=== PATIENT | female | born 1980 | race Caucasian/White ===

== ENCOUNTER 2022-06-02 07:38 | Outpatient (CLI) | payer BC, SELFPAY ==
--- NOTE | 2022-06-02 07:45 | CRLHL7_ITS ---
For Patients: As a result of the Century Cures Act, medical imaging exams and procedure reports are released immediately into your electronic medical record. You may view this report before your referring provider. If you have questions, please contact your health care provider. BILATERAL SCREENING MAMMOGRAM WITH COMPUTER-AIDED DETECTION AND TOMOSYNTHESIS TECHNIQUE: CC and MLO views were obtained. These mammographic images have been obtained using full-field digital technique. These mammographic images were interpreted with the benefit of computer-aided detection. Breast Tomosynthesis was used in this interpretation. COMPARISON FILM: , 05/29/20. FINDINGS: There are scattered areas of fibroglandular density IMPRESSION: There is no radiographic evidence for malignancy. ASSESSMENT: BI-RADS Category 1: Negative RECOMMENDATION: Routine screening mammogram in 1 year. A lay language report of this examination will be provided to the patient. Maxime Issa M.D. Diagnostic Radiologist [email or web address] RENU/Dictated by: Maxime Issa MD @ 06/02/2022 9:58:00 AM (Electronically Signed)
== END 2022-06-02 07:39 | disposition home or self-care (01) ==
LOC: MAMMO 07:39
PROVIDERS: Visit Provider Registered Nurse
DX: Z12.31 Encounter for screening mammogram for malignant neoplasm of breast (principal)
CPT/HCPCS: 77063; 77067

== ENCOUNTER 2023-07-23 11:13 | Outpatient (CLI) | payer BC, SELFPAY | END 2023-07-23 11:14 | disposition home or self-care (01) | PROVIDERS: PCP Emergency Medicine; Visit Provider Registered Nurse | DX: R53.83 Other fatigue (principal); R63.5 Abnormal weight gain; Z13.220 Encounter for screening for lipoid disorders | CPT/HCPCS: 80061; 82306; 84443 ==

== ENCOUNTER 2023-08-05 08:33 | Outpatient (CLI) | payer BC, SELFPAY | END 2023-08-05 08:34 | disposition home or self-care (01) | LOC: NFLDREF 08-07 12:01 | PROVIDERS: PCP Emergency Medicine; Referring Provider Emergency Medicine; Visit Provider Emergency Medicine | DX: E78.5 Hyperlipidemia, unspecified (principal); N95.1 Menopausal and female climacteric states | CPT/HCPCS: 80061; 83001 ==

== ENCOUNTER 2024-01-12 11:08 | Outpatient (CLI) | payer BC, SELFPAY ==
--- OUTSIDE RECORDS SUMMARY | 2024-01-12 11:11 | XMS_ITS | Clinical Summary ---
Author Organization [facility] Address [address] [address] Care Team Providers Care Upper Inspector Name Role Phone Unavailable Primary Care Provider Unavailabl e Source Comments You are receiving this document as you are listed as the primary care provider,follow-up provider, or the patient has been referred to you for consultation.This is in compliance with the Medicare andMedicaid EHR Incentive Program,which states Providers who transition their patient to another setting of careor provider of care or refers their patient to another provider of care shouldprovide summary care record for each transition of care or referral. [facility] Active Allergy Reactions Criticality Noted Date Comments Penicillins Rash 12/16/2022 Medications Medication Sig Dispensed Refills Start Date End Date Status escitalopram (LEXAPRO) 10 MG tablet Take 1 Tablet (10 mg) by mouth daily. 06/22/2022 Active levonorgestrel (MIRENA) 20 MCG/DAY IUD 1 Each by Intrauterine route once. Active Active Problems No known active problems Social History Tobacco Use Types Packs/Day Years Used Date Smoking Tobacco: Never Passive Smoke Exposure: Never Smokeless Tobacco: Never Tobacco Cessation:Counseling Given: Not Answered Sex and Gender Information Value Date Recorded Sex Assigned at Not on file Gender Identity Not on file Sexual Orientation Not on file Last Filed Vital Signs Vital Sign Reading Time Taken Comments Blood Pressure 143/92 12/16/2022 8:19 AM CDT Pulse 75 12/16/2022 8:19 AM CDT Temperature 36.6 ??C (97.8 ??F) 12/16/2022 8:19 AM CD T Respiratory Rate 16 12/16/2022 8:19 AM CDT Oxygen Saturation 99% 12/16/2022 8:19 AM CDT Inhaled Oxygen Concentration - - Weight - - Height - - Body Mass Index - - Plan of Treatment Health Maintenance Due Date Last Done Comments Cervical Cancer Screening Due 1980 Hep C Screening (Preventive Services) 1980 HIV Screening (Preventive Services) 1996 Adult Preventive Visit 1998 HepB (1) 1999 COVID-19 Vaccine ( - season) 2023 08/12/2022, 07/03/2021, 01/07/2021, Additional history exists Influenza (Season Ended) 2024 022, 07/06/2014, 05/10/2012 DTaP/Tdap/Td (3 - Tdap) 12/28/2024 12/28/2014, 10/29 Zoster/Shingles (1 of 2) 2030 HPV Vaccine Aged Out No longer eligi ble based on patient's age to complete this topic HepA Aged Out No longer eligi ble based on patient's age to complete this topic Hib Aged Out No longer eligi ble based on patient's age to complete this topic IPV (Polio) Aged Out No longer eligi ble based on patient's age to complete this topic MCV4 Aged Out No longer eligi ble based on patient's age to complete this topic Pneumococcal Aged Out No longer eligi ble based on patient's age to complete this topic
== END 2024-01-12 11:09 | disposition home or self-care (01) ==
LOC: LKVREF 11:10
PROVIDERS: PCP Emergency Medicine; Visit Provider Family Medicine
DX: Z01.818 Encounter for other preprocedural examination (principal); E78.5 Hyperlipidemia, unspecified; R68.82 Decreased libido; E66.01 Morbid (severe) obesity due to excess calories
CPT/HCPCS: 80048

== ENCOUNTER 2024-04-29 09:34 | Outpatient (CLI) | payer BC, SELFPAY ==
--- OUTSIDE RECORDS SUMMARY | 2024-04-29 09:37 | XMS_ITS | Clinical Summary ---
Author Organization [facility] Address [address], [place] [address] Care Team Providers Care Systems Analyst Developer Name Role Phone Unavailable Primary Care Provider [...] for each transition of care or referral. [facility] Active Allergy Reactions Criticality Noted Date [...] 1980 Hep C Screening (Preventive Services) 1980 Mammogram 1980 HIV Screening (Preventive Services) 1996 Adult Preventive Visit 1998 HepB (1) 1999 COVID-19 Vaccine ( - season) 2024 08/12/2022, 07/03/2021, 01/07/2021, Additional history exists Influenza (#1) 2024 08/12/2022, 06/18, 05/10/2012 DTaP/Tdap/Td (3 - Tdap) 12/28/2024 12/28/2014, [...]
--- NOTE | 2024-04-29 09:45 | CRLHL7_ITS ---
For Patients: As a result of the Cures Act, medical imaging exams and procedure reports are released immediately into your electronic medical record. You may view this report before your referring provider. If you have questions, please contact your health care provider. BILATERAL DIAGNOSTIC MAMMOGRAM WITH COMPUTER-AIDED DETECTION AND TOMOSYNTHESIS LEFT BREAST ULTRASOUND CLINICAL HISTORY: LEFT breast focal pain. COMPARISON: 06/02/2022, 05/30/2021, 06/07/2020, 05/29/2020. TECHNIQUE: Digital BILATERAL mammogram in four projections with computer-aided detection. Tomosynthesis was used in this interpretation. Real-time ultrasound imaging of LEFT breast with imaging documentation. BREAST COMPOSITION: There are scattered areas of fibroglandular density. FINDINGS: 3D CC/MLO BILATERAL mammogram images submitted. Stable density in the RIGHT lateral breast tissue. Unremarkable LEFT breast tissue without architectural distortion or suspicious mass. No adenopathy or suspicious calcifications. Targeted LEFT breast ultrasound performed in the area of concern at 8 o`clock 7 cm from the nipple. Normal fibroglandular tissue. No fibrocystic change or solid mass. IMPRESSION: No suspicious findings. No evidence of malignancy. RECOMMENDATIONS: Annual bilateral screening mammography. BI-RADS Category 2: Benign Results and recommendations discussed with the patient. A lay language report of this examination will be provided to the patient. Dictated by Maxime Issa MD @ 04/29/2024 10:48:56 AM /sp SP/Dictated by: Maxime Issa MD @ 04/29/2024 10:49:00 AM (Electronically Signed)
--- NOTE | 2024-04-29 10:15 | CRLHL7_ITS ---
For Patients: As a result of the Century Cures Act, medical imaging exams and procedure reports are released immediately into your electronic medical record. You may view this report before your referring provider. If you have questions, please contact your health care provider. PLEASE SEE BILATERAL BREAST DIAGNOSTIC MAMMOGRAM PERFORMED SAME DAY. CRL:sp SP/Dictated by: Maxime Issa MD @ 04/29/2024 10:49:00 AM (Electronically Signed)
== END 2024-04-29 09:35 | disposition home or self-care (01) ==
PROVIDERS: PCP Emergency Medicine; Visit Provider Registered Nurse
DX: N64.4 Mastodynia (principal)
CPT/HCPCS: 76642; 77066; G0279

== ENCOUNTER 2025-05-01 09:46 | Outpatient (CLI) | payer BC, SELFPAY | END 2025-05-01 09:47 | disposition home or self-care (01) | LOC: NFLDREF 05-05 04:14 | PROVIDERS: PCP Physician Assistant Medical; Referring Provider Emergency Medicine; Visit Provider Physician Assistant Medical | DX: E78.2 Mixed hyperlipidemia (principal); E66.01 Morbid (severe) obesity due to excess calories; F41.9 Anxiety disorder, unspecified | CPT/HCPCS: 80053; 80061; 84443 ==

== ENCOUNTER 2025-05-24 08:48 | Outpatient (CLI) | payer BC, SELFPAY ==
--- NOTE | 2025-05-24 08:45 | CRLHL7_ITS ---
For Patients: As a result of the Century Cures Act, medical imaging exams and procedure reports are released immediately into your electronic medical record. You may view this report before your referring provider. If you have questions, please contact your health care provider. INDICATION: BILATERAL SCREENING MAMMOGRAM, ASYMPTOMATIC 45 Y/O FEMALE COMPARISON: 04/29/2024, 06/02/2022, 05/30/2021 TECHNIQUE: Digital mammogram in CC and MLO projections including computer-aided detection (CAD) and tomosynthesis. BREAST COMPOSITION: There are scattered areas of fibroglandular density. FINDINGS: No suspicious findings. ASSESSMENT: BI-RADS 1 Negative RECOMMENDATION: Annual screening mammogram. A lay language report of this examination will be provided to the patient. Dictated by: Maxime Issa MD @ 05/24/2025 09:48:03 (Electronically Signed)
== END 2025-05-24 08:49 | disposition home or self-care (01) ==
LOC: MAMMO 08:49
PROVIDERS: PCP Physician Assistant Medical; Visit Provider Physician Assistant Medical
DX: Z12.31 Encounter for screening mammogram for malignant neoplasm of breast (principal)
CPT/HCPCS: 77063; 77067

== ENCOUNTER 2025-05-25 11:45 | Outpatient (CLI) | payer BC, SELFPAY ==
[2025-05-30 11:51] LABS: Pap Test Digital Imaging Done
[2025-05-31 19:36] LABS: HPV Source Cervix
== END 2025-05-25 11:46 | disposition home or self-care (01) ==
PROVIDERS: PCP Physician Assistant Medical; Visit Provider Registered Nurse
DX: Z12.4 Encounter for screening for malignant neoplasm of cervix (principal); Z13.9 Encounter for screening, unspecified
CPT/HCPCS: 87624; 87625; 88141; 88142; 88175

== ENCOUNTER 2025-07-20 09:27 | Outpatient (CLI) | payer BC, SELFPAY ==
--- NOTE | 2025-07-20 11:27 | P.ANES_ITS ---
Anesthesia Charges Start Date/Time Anesthesia Start Date: 07/20/25 Anesthesia Start Time: 10:50 Stop Date/Time Anesthesia Stop Date: 07/20/25 Anesthesia Stop Time: 11:25 Coding CPT Codes CPT Codes: TOM LWR INTST NDSC NOS - [id number] ([id number]) P2 - PATIENT W/MILD SYST DISEASE, QK - FURNACE CONVERTER 2-4 CNCRNT ANES PROC, QX - BRAZER CRAWLER TORCH SVC W/ MD MED DIRECTION
--- NOTE | 2025-07-20 11:27 | W.ANESCHARGE ---
Anesthesia Charges Start Date/Time Anesthesia Start Date: 07/20/25 Anesthesia Start Time: 10:50 Stop Date/Time Anesthesia Stop Date: 07/20/25 Anesthesia Stop Time: 11:25 Coding CPT Codes CPT Codes: TOM LWR INTST NDSC NOS - [id number] ([id number]) P2 - PATIENT W/MILD SYST DISEASE, QK - JAVA LEAD DEVELOPER 2-4 CNCRNT ANES PROC, QX - TELEPHONIC RN SVC W/ MD MED DIRECTION
--- NOTE | 2025-07-20 12:51 | P.ANES_ITS ---
Anesthesia Charges Start Date/Time Anesthesia Start Date: 07/20/25 Anesthesia Start Time: 10:50 Stop Date/Time Anesthesia Stop Date: 07/20/25 Anesthesia Stop Time: 11:25 Coding CPT Codes CPT Codes: TOM LWR INTST NDSC NOS - [id number] ([id number]) P2 - PATIENT W/MILD SYST DISEASE, QK - MYSQL DATABASE DEVELOPER 2-4 CNCRNT ANES PROC, QX - PROMOTION WRITER SVC W/ MD MED DIRECTION
--- NOTE | 2025-07-20 12:51 | W.ANESCHARGE ---
Anesthesia Charges Start Date/Time Anesthesia Start Date: 07/20/25 Anesthesia Start Time: 10:50 Stop Date/Time Anesthesia Stop Date: 07/20/25 Anesthesia Stop Time: 11:25 Coding CPT Codes CPT Codes: TOM LWR INTST NDSC NOS - [id number] ([id number]) P2 - PATIENT W/MILD SYST DISEASE, QK - GRAIN SCOOPER 2-4 CNCRNT ANES PROC, QX - FLAKE MILLER HELPER SVC W/ MD MED DIRECTION
== END 2025-07-20 09:28 | disposition home or self-care (01) ==
LOC: OP CLINIC 09:30
PROVIDERS: PCP Physician Assistant Medical; Visit Provider Surgery
DX: Z12.11 Encounter for screening for malignant neoplasm of colon (principal); D12.3 Benign neoplasm of transverse colon; D12.8 Benign neoplasm of rectum; K64.4 Residual hemorrhoidal skin tags
CPT/HCPCS: 00811; 00812; 45385; J2704